=== PATIENT | male | born 1940 | race Caucasian/White ===

== ENCOUNTER 2018-01-18 15:00 | Inpatient (IN) | payer MEDICARE, OTHER ==
[~2018-01-18] VITALS: Ht 180.3 cm; Wt 133.4 kg
[~2018-01-18 15:00] MED LIST: AMMONIUM LACTA225 GM TOP; BACTRIM DS TAB1 EACH PO; CEPHALEXIN500 MG PO; CICLOPIROX15 GM TOP; CIPRO500 MG PO; COUMADIN2.5 MG PO; DAILY VITAMIN1 EAC3 PO; DESONIDE15 G1 TOP; DOXEPIN HCL25 MG PO; FEXOFENADINE H180 MG PO; FLUCONAZOLE100 MG PO; FUROSEMIDE40 MG PO; HYDROXYZINE PAM25 MG PO; Iron PO; NITROGLYCERIN0.4 MG SL; NORCO 5-325 TA1 EACH PO; OMEPRAZOLE40 MG PO; POLYETHYLENE GL17 GM PO; POTASSIUM CHLO10 ME1 PO; QUINAPRIL HCL40 MG PO; SILVER SULFADIA10 GM TP; SIMVASTATIN40 MG PO; SUPER B WITH V1 EACH PO; TENORMIN50 MG PO; TERBINAFINE HC250 MG PO; TOPICORT15 G1 TP; TRAZODONE HCL50 MG PO; TRIAMCINOLONE A15 G3 TOP; TRIAMTERENE-HCTZ1 EA PO; ULTRAM 50MG50 MG PO; WARFARIN SODIUM5 MG PO
--- OUTSIDE RECORDS SUMMARY | 2018-01-18 15:03 | XMS REPORT | Clinical Summary ---
Author Author MARITA PDD GroupSt. 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 Disp. Refills Start End Date Status Date omeprazole (PRILOSEC OTC) Take 20 mg by mouth Active 20 MG tablet daily. atenolol (TENORMIN) 50 MG Take 50 mg by mouth Active tablet daily. fexofenadine (JASPREET) Take 180 mg by mouth Active 180 MG tablet daily. furosemide (LASIX) 40 MG Take 40 mg by mouth Active tablet daily. quinapril (ACCUPRIL) 40 Take 40 mg by mouth Active MG tablet nightly. simvastatin (ZOCOR) 40 MG Take 40 mg by mouth Active tablet nightly. traMADol (ULTRAM) 50 mg Take 50 mg by mouth every Active tablet 6 (six) hours as needed. warfarin (COUMADIN) 5 MG Take 5 mg by mouth daily. Active tablet Take 1 and a half tablets daily or as directed by coumadin clinic. multivitamin Take 1 tablet by mouth Active (MULTIVITAMIN) per tablet daily. potassium chloride Take 10 mEq by mouth Active (KLOR-CON) 10 MEQ CR daily. tablet ferrous sulfate 325 (65 Take 325 mg by mouth Active FE) MG tablet daily with breakfast. doxazosin (CARDURA) 4 MG Take 4 mg by mouth 04/07/20 Discontin tablet nightly. 17 ued finasteride (PROSCAR) 5 Take 5 mg by mouth daily. 04/07/20 Discontin mg tablet 17 ued triamterene-hydrochloroth Take 1 tablet by mouth 04/07/20 Discontin iazide (MAXZIDE-25) daily. 17 ued 37.5-25 mg per tablet minocycline Take 1 capsule (100 mg 20 capsule 0 04/11/20 04/21/20 (MINOCIN,DYNACIN) 100 MG total) by mouth 2 (two) 17 17 capsule times daily for 10 days. 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, 04/07 limited to breakdown of skin ([facility]) PAD (peripheral artery disease) (HCC) 04/07/2017 BPH (benign prostatic hyperplasia) 08/22/2013 Hypertension 09/12/1988 Encounters Date Type Specialty Care Team Description 04/08/2017 Orders Only General Internal Medicine 04/07/2017 [facility] General Internal Medicine Bjorn Dela Cruz MD Cellulitis of right foot - Encounter Michelle Win (Primary Dx);Fever, 04/11/2017 MD Nelly unspecified fever Erasto Martin MD cause;Leukocytosis, unspecified type;Essential hypertension;Sepsis, due to unspecified organism ([facility]) after 01/17/2017 Social History Tobacco Use Types Packs/Day Years Used Date Former Smoker 2.5 33 Quit: 04/12/1987 Smokeless Tobacco: Never Used Alcohol Use Drinks/Week oz/Week Comments No Sex Assigned at Date Recorded Not on file Last Filed Vital Signs Vital Sign Reading Time Taken Blood Pressure 153/73 04/11/2017 12:08 PM CDT Pulse 73 04/11/2017 12:08 PM CDT Temperature 36.7 C (98.1 F) 04/11/2017 12:08 PM CDT Respiratory Rate 20 04/11/2017 12:08 PM CDT Oxygen Saturation 97% 04/11/2017 12:08 PM CDT Inhaled Oxygen - - Concentration Weight 142 kg (313 lb) 04/08/2017 2:10 AM CDT Height 180.3 cm (5' 11") 04/08/2017 2:10 AM CDT Body Mass Index 43.65 04/08/2017 2:10 AM CDT Plan of Treatment Not on file Results * RHYTHM STRIP - SCAN (04/12/2017 2:12 PM) * POC-Glucose meter (04/11/2017 12:11 PM) Only the most recent of 14 results within the time period is included. Component Value Ref Range POC-Glucose Meter 148 (H)Comment: TESTED AT [address] 70 - 110 mg /dL [facility] [id number] Specimen Performing Laboratory Blood [address] [address] * CBC with platelet count + automated diff (04/11/2017 5:21 AM) Only the most recent of 5 results within the time period is included. Component Value Ref Range WBC 6.1 3.5 - 10.5 K/ L RBC 4.36 (L) 4.63 - 6.08 M/ L Hemoglobin 12.1 (L) 13.7 - 17.5 GM/DL Hematocrit 37.4 (L) 40.1 - 51.0 % MCV 85.8 79.0 - 92.2 fL MCH 27.8 25.7 - 32.2 pg MCHC 32.4 32.3 - 36.5 GM/DL RDW 15.9 (H) 11.6 - 14.4 % Platelets 152 150 - 450 K/CU MM MPV 10.3 9.4 - 12.4 fL nRBC 0 0 - 0 /100 WBC % Neutros 74 % % Lymphs 13 % % Monos 10 % % Eos 2 % % Baso 0 % # Neutros 4.52 1.78 - 5.38 K/ L # Lymphs 0.78 (L) 1.32 - 3.57 K/ L # Monos 0.58 0.30 - 0.82 K/ L # Eos 0.14 0.04 - 0.54 K/ L # Baso 0.02 0.01 - 0.08 K/ L Immature 1 0 - 1 % Granulocytes-Relative Specimen Performing Laboratory Blood - Arm, Left [address] [address] * Prothrombin time/INR (04/11/2017 5:21 AM) Only the most recent of 4 results within the time period is included. Component Value Ref Range Protime 20.5 (H) 11.7 - 14.7 seconds INR 1.8 <=5.9 Specimen Performing Laboratory Blood - Arm, Left [address] [address] Narrative RECOMMENDED COUMADIN/WARFARIN INR THERAPY RANGES STANDARD DOSE: 2.0 - 3.0 Includes: PROPHYLAXIS for venous thrombosis, systemic embolization; TREATMENT for venous thrombosis and/or pulmonary embolus. HIGH RISK: Target INR is 2.5-3.5 for patients with mechanical heart valves. * CBC with platelet count + automated diff (04/11/2017 5:21 AM) Only the most recent of 5 results within the time period is included. Specimen Performing Laboratory Blood Narrative The following orders were created for panel order CBC with platelet count + automated diff. Procedure Abnormality Status --------- - ------ CBC with platelet count ...[[id number]]AbnormalFinal result Please view results for these tests on the individual orders. * Basic Metabolic Panel (04/11/2017 5:21 AM) Only the most recent of 5 results within the time period is included. Component Value Ref Range Sodium 138 136 - 145 meq/L Potassium 3.7 3.5 - 5.1 meq/L Chloride 102 98 - 107 meq/L CO2 26 22 - 29 meq/L BUN 21 7 - 21 mg/dL Creatinine 1.25 0.57 - 1.25 mg/dL Glucose 115 (H) 70 - 105 mg/dL Calcium 9.7 8.4 - 10.2 mg/dL EGFR 56Comment: ESTIMATED GFR IS NOT ACCURATE mL/min/1.73 sq m CREATININE CLEARANCE IN PREDICTING GLOMERULAR FILTRATION RATE. ESTIMATED GFR IS NOT APPLICABLE FOR DIALYSIS PATIENTS. Specimen Performing Laboratory Blood - Arm, Left [address] [address] * PERIPHERAL VASCULAR REPORT - SCAN (04/10/2017 1:20 PM) Only the most recent of 2 results within the time period is included. * Venous doppler leg, right (04/10/2017 12:20 PM) Component Value Ref Range Ejection Fraction Specimen Performing Laboratory [facility] CPACS Impressions Right Impression 1. There is no deep venous obstruction in the common femoral, profunda femoral, femoral, popliteal, posterior tibial or peroneal veins where visualized. 2. There is no superficial venous obstruction in the great saphenous vein where visualized. Conclusions Summary Venous duplex imaging and compression of the right lower extremity was performed. The veins were technically difficult to visualize due to edema and patient body habitus. The right venous system was patent and compressible with no evidence of thrombus where visualized. The venous Doppler waveforms were pulsatile indicating possible elevated right heart filling pressure. Signature Velocities are measured in cm/s ; Diameters are measured in cm Narrative PV LAB - Lower Extremities DVT Study Demographics Patient Name MAXIMILIANO NAIR Date of Study 04/10/2017 GEM [id number] Visit Number [id number] Male Accession Number [id number] of 1940 [facility] Room Number 739 Hannah Lomeli. JACQUELINE CarterT Physician , YEYO Procedure Type of Study: Veins: Lower Extremities DVT Study, VENOUS DOPPLER LEG, RIGHT. Indications for Study:Right Leg Swelling and Foot Ulcer. Patient Status:Routine. Study Location:Vascular Lab. Technical Quality:Adequate visualization. Risk Factors History of Disease + +----+ + !Diagnosis !Date!Comments ! + +----+ + !History/Risk!!HTN, Cellulitis, Chronic A-fib, CAD, Former ! !Factors:!!smoker ! + +----+ + !History/Risk!!Diabetes and PAD ! !Factors:!! ! + +----+ + Procedure Note Interface, External Ris In - 04/10/2017 12:35 PM CDT PV LAB - Lower Extremities DVT Study Demographics Patient Name MAXIMILIANO NAIR Date of Study 04/10/2017 GEM Age 76 Visit Number [id number] Gender Male Accession Number [id number] Date of 1940 Referring [facility] Room Number 739 Physician Gabbie Cardona Director Work Klaudia Velazquez Interpreting Balaji Corral, T Physician , RPVI Procedure Type of Study: Veins: Lower Extremities DVT Study, VENOUS DOPPLER LEG, RIGHT. Indications for Study:Right Leg Swelling and Foot Ulcer. Patient Status:Routine. Study Location:Vascular Lab. Technical Quality:Adequate visualization. Risk Factors History of Disease + +----+ + !Diagnosis !Date!Comments ! + +----+ + !History/Risk ! !HTN, Cellulitis, Chronic A-fib, CAD, Former ! !Factors: ! !smoker ! + +----+ + !History/Risk ! !Diabetes and PAD ! !Factors: ! ! ! + +----+ + Impressions Right Impression 1. There is no deep venous obstruction in the common femoral, profunda femoral, femoral, popliteal, posterior tibial or peroneal veins where visualized. 2. There is no superficial venous obstruction in the great saphenous vein where visualized. Conclusions Summary Venous duplex imaging and compression of the right lower extremity was performed. The veins were technically difficult to visualize due to edema and patient body habitus. The right venous system was patent and compressible with no evidence of thrombus where visualized. The venous Doppler waveforms were pulsatile indicating possible elevated right heart filling pressure. Signature Velocities are measured in cm/s ; Diameters are measured in cm * Hemoglobin A1c (04/10/2017 5:16 AM) Component Value Ref Range Hemoglobin A1C 6.9 (H) 4.3 - 6.1 % Specimen Performing Laboratory Blood - Arm, [place] [address] * Vancomycin level, trough (04/10/2017 5:16 AM) Component Value Ref Range Vancomycin Tr 8.2 (L) 10.0 - 20.0 ug/mL Specimen Performing Laboratory Blood - Arm, [place] [address] Narrative Please draw vancomycin trough \\R\\30 minutes prior to administration time; For trough >20 mcg/mL, hold next dose and contact pharmacy and MD. * Urinalysis w/Microscopic + Reflex to Culture (04/09/2017 9:45 AM) Component Value Ref Range Color, UA Yellow Clarity, UA Hazy Specific B[place]on, UA 1.017 1.001 - 1.035 pH, UA 6.0 5.0 - 8.0 Protein, UA 200 mg/dL (A) Negative Glucose, UA Negative Negative Ketones, UA Negative Negative Bilirubin, UA Negative Negative Blood, UA Moderate (A) Negative Nitrite, UA Negative Negative Leukocytes, UA Large (A) Negative Urobilinogen, UA 2.0 (H) 0.2 - 1.0 mg/dL RBC, UA 2 /HPF WBC, UA 130 /HPF Mucus Rare Squam Epithel, UA 1 /HPF Specimen Source Specimen Performing Laboratory Urine - Urine, Voided [address] [address] * Urine culture (04/09/2017 9:45 AM) Component Value Ref Range Result No growth Specimen Performing Laboratory Urine - Urine, [place] [address] * TSH/Free T4 If Indicated (04/09/2017 5:03 AM) Component Value Ref Range TSH 3.42 0.35 - 4.94 uIU/mL Specimen Performing Laboratory Blood [place] [id number] * B-type Natriuretic Factor (BNP) (04/09/2017 5:03 AM) Component Value Ref Range BNP 145 (H) 0 - 100 pg/mL Specimen Performing Laboratory Blood [facility] [address] [place] [address] * Arterial doppler legs bilateral (04/08/2017 5:30 PM) Component Value Ref Range Ejection Fraction Specimen Performing Laboratory [facility] CPACS Impressions Right Impression 1. The posterior tibial and dorsalis pedis arteries are patent with triphasic Doppler waveforms. 2. The PT pressure is 157 mmHg with an SHANTANU of 1.28 and the DP pressure is 158 mmHg with an SHANTANU of 1.28, within normal range. 3. The great toe pressure is 103 mmHg with a normal TBI of 0.84. 4. The digits have adequate flow by PPG waveforms. Left Impression 1. The posterior tibial and dorsalis pedis arteries are patent with triphasic Doppler waveforms. 2. The PT pressure is 142 mmHg with an SHANTANU of 1.15 and the DP pressure is 150 mmHg with an SHANTANU of 1.22, within normal range. 3. The great toe pressure is 113 mmHg with a normal TBI of 0.92. 4. The digits have decreased flow by PPG waveforms compared to the right side. Conclusions Summary Arterial pressures and Doppler waveforms were performed bilaterally. Adequate Doppler waveforms were obtained. Doppler waveforms were triphasic with normal flow bilaterally. The right and left SHANTANU's were within normal range. The toe pressure and TBI's were within normal range bilaterally. The right digits had adequate flow by PPG waveforms. The left digits had decreased flow by PPG waveforms compared to the right. Signature Velocities are measured in cm/s ; Diameters are measured in cm Narrative PV LAB - Lower Extremity Arterial Procedure Demographics Patient Name MAXIMILIANO NAIR Date of Study 04/08/2017 GEM [id number] Visit Number [id number] Male Accession Number [id number] [facility] 1940 [facility] SonographerHeaFamilia Noel Alejandro Physician , RPVI Procedure Type of Study: Extremities Arteries: Lower Extremity Arterial Procedure, ARTERIAL (SHANTANU'S W/DOPPLER) ONLY. Indications for Study:Claudication. Patient Status:Routine. Study Location:Vascular Lab. Technical Quality:Adequate visualization. Risk Factors History of Disease + +----+ + !Diagnosis !Date!Comments ! + +----+ + !History/Risk!!HTN, Cellulitis, Chronic A-fib, CAD, Former ! !Factors:!!smoker ! + +----+ + Procedure Note Interface, External Ris In - 04/09/2017 5:34 AM CDT PV LAB - Lower Extremity Arterial Procedure Demographics Patient Name MAXIMILIANO NAIR Date of Study 04/08/2017 GEM Age 76 Visit Number [id number] Gender Male Accession Number [id number] Date of 1940 Referring [facility] Room Number 739 Physician Director Work Familia Cevallos [facility] Physician , RPVI Procedure Type of Study: Extremities Arteries: Lower Extremity Arterial Procedure, ARTERIAL (SHANTANU'S W/DOPPLER) ONLY. Indications for Study:Claudication. Patient Status:Routine. Study Location:Vascular Lab. Technical Quality:Adequate visualization. Risk Factors History of Disease + +----+ + !Diagnosis !Date!Comments ! + +----+ + !History/Risk ! !HTN, Cellulitis, Chronic A-fib, CAD, Former ! !Factors: ! !smoker ! + +----+ + Impressions Right Impression 1. The posterior tibial and dorsalis pedis arteries are patent with triphasic Doppler waveforms. 2. The PT pressure is 157 mmHg with an SHANTANU of 1.28 and the DP pressure is 158 mmHg with an SHANTANU of 1.28, within normal range. 3. The great toe pressure is 103 mmHg with a normal TBI of 0.84. 4. The digits have adequate flow by PPG waveforms. Left Impression 1. The posterior tibial and dorsalis pedis arteries are patent with triphasic Doppler waveforms. 2. The PT pressure is 142 mmHg with an SHANTANU of 1.15 and the DP pressure is 150 mmHg with an SHANTANU of 1.22, within normal range. 3. The great toe pressure is 113 mmHg with a normal TBI of 0.92. 4. The digits have decreased flow by PPG waveforms compared to the right side. Conclusions Summary Arterial pressures and Doppler waveforms were performed bilaterally. Adequate Doppler waveforms were obtained. Doppler waveforms were triphasic with normal flow bilaterally. The right and left SHANTANU's were within normal range. The toe pressure and TBI's were within normal range bilaterally. The right digits had adequate flow by PPG waveforms. The left digits had decreased flow by PPG waveforms compared to the right. Signature Velocities are measured in cm/s ; Diameters are measured in cm * Manual Differential (04/08/2017 9:59 AM) Component Value Ref Range Total Counted WBC Morphology Normal Platelet Morphology Normal RBC Morphology Normal Specimen Performing Laboratory Blood - Arm, [place] [address] * ECG 12 lead (04/08/2017 12:36 AM) Specimen Performing Laboratory GE MUSE Narrative Ventricular Rate 114 BPM Atrial Rate 147 BPM QRS Duration 96 ms Q-T Interval 350 ms QTC Calculation(Bazett) 482 ms R [place] 4 degrees T [place] 64 degrees Atrial fibrillation with rapid ventricular response Low voltage QRS Abnormal ECG When compared with ECG of 05-JAN-2013 18:32, No significant change was found Confirmed by MD KAREN, IHAB ([id number]) on 04/08/2017 2:38:56 PM Procedure Note Interface, External Ris In - 04/08/2017 2:39 PM CDT Ventricular Rate 114 BPM Atrial Rate 147 BPM QRS Duration 96 ms Q-T Interval 350 ms QTC Calculation(Bazett) 482 ms R [place] 4 degrees T [place] 64 degrees Atrial fibrillation with rapid ventricular response Low voltage QRS Abnormal ECG When compared with ECG of 05-JAN-2013 18:32, No significant change was found Confirmed by MD KAREN, AB ([id number]) on 04/08/2017 2:38:56 PM * ED ECG Interpretation (04/07/2017 11:31 PM) Narrative Bjorn Dela Cruz MD 04/07/2017 11:31 PM ECG/EKG Interpretation Date/Time: 04/07/2017 11:00 PM Performed by: BJORN DELA CRUZ Authorized by: BJORN DELA CRUZ The ECG was interpreted by ED physician. The ECG is interpreted as sinus tachycardia. Heart rate is 116 BPM. Patient tolerance: Patient tolerated the procedure well with no immediate complications Comments: SINUS TACHYCARDIA ON MONITOR * POC-Lactic Acid, Venous (04/07/2017 9:06 PM) Component Value Ref Range POC-Lactic Acid, Venous 1.6Comment: TESTED AT [address] 0.9 - 1.7 mmol/[place] [address] Specimen Performing Laboratory Blood [address] [address] * Blood culture (04/07/2017 9:00 PM) Only the most recent of 2 results within the time period is included. Component Value Ref Range Result No growth in 5 days Specimen Performing Laboratory Blood - Arm, Left [address] [address] * XR chest 1 view portable / bedside (04/07/2017 8:10 PM) Specimen Performing Laboratory GE RIS Narrative FINAL REPORT History: Fever. Comparison: 01/04/2013 Findings: 2 frontal views of the chest are submitted. There is atherosclerotic calcification of the aorta area The cardiomediastinal contours are otherwise unremarkable. There is no focal consolidation, pneumothorax, large pleural effusion or evidence of overt pulmonary edema. There is no acute bony abnormality. Impression: No acute abnormality. Signed: George Carmichael MD Report Verified Date/Time:04/07/2017 20:23:58 Reading Location: [address] Reading Room Procedure Note Interface, External Ris In - 04/07/2017 8:26 PM CDT FINAL REPORT History: Fever. Comparison: 01/04/2013 Findings: 2 frontal views of the chest are submitted. There is atherosclerotic calcification of the aorta area The cardiomediastinal contours are otherwise unremarkable. There is no focal consolidation, pneumothorax, large pleural effusion or evidence of overt pulmonary edema. There is no acute bony abnormality. Impression: No acute abnormality. Signed: George Carmichael MD Report Verified Date/Time: 04/07/2017 20:23:58 Reading Location: [address] Reading Room * XR foot 3 views right (04/07/2017 8:10 PM) Specimen Performing Laboratory GE RIS Narrative FINAL REPORT CLINICAL HISTORY: Cellulitis and fever COMPARISON: None. FINDINGS: 3 views of the right foot are submitted. There is diffuse soft tissue swelling about the foot and ankle without underlying fracture, malalignment, destructive bony lesion, radiopaque foreign body or soft tissue gas. Please note that the radiographic appearance of osteomyelitis lags behind clinical onset. If of further clinical concern, three-phase bone scan or MRI is recommended. Signed: George Carmichael MD Report Verified Date/Time:04/07/2017 20:37:04 Reading Location: [address] Reading Room Procedure Note Interface, External Ris In - 04/07/2017 8:39 PM CDT FINAL REPORT CLINICAL HISTORY: Cellulitis and fever COMPARISON: None. FINDINGS: 3 views of the right foot are submitted. There is diffuse soft tissue swelling about the foot and ankle without underlying fracture, malalignment, destructive bony lesion, radiopaque foreign body or soft tissue gas. Please note that the radiographic appearance of osteomyelitis lags behind clinical onset. If of further clinical concern, three-phase bone scan or MRI is recommended. Signed: George Carmichael MD Report Verified Date/Time: 04/07/2017 20:37:04 Reading Location: [address] Reading Room after 01/17/2017
--- OUTSIDE RECORDS SUMMARY | 2018-01-18 15:04 | XMS REPORT ---
Author Author [facility] Address Unknown Phone Unavailable Care Team Providers Care Public Relations Consultant Name Role Phone BJORN PARRA Unavailable Unavailable Problems This patient has no known problems. Allergies, Adverse Reactions, Alerts This patient has no known allergies or adverse reactions. Medications This patient has no known medications. Results Test Description Test Time Test Comments Text Results Atomic Results Result Comments BLOOD CULTURE 2017-04-13 00:00:00 CULTURE (BEAKER) (test eaub=9872) No growth in 5 days BLOOD [id number] 00:00:00* Test Item Value Reference Range Comments CULTURE (BEAKER) (test zzse=2700) No growth in 5 days POCT-GLUCOSE [id number] 12:29:00* Test Item Value Reference Range Comments POC-GLUCOSE METER (BEAKER) (test uzun=6503) 148 mg/dL 70-110 TESTED AT [place] [id number] [facility] [address] POCT-GLUCOSE [id number] 07:33:00* Test Item Value Reference Range Comments POC-GLUCOSE METER (BEAKER) (test dsau=9531) 126 mg/dL 70-110 TESTED AT [address] [address] CBC W/PLT COUNT & AUTO [id number] 05:55:00* Test Item Value Reference Range Comments WHITE BLOOD CELL COUNT (BEAKER) (test xfhw=945) 6.1 K/ L 3.5-10.5 RED BLOOD CELL COUNT (BEAKER) (test dvsl=926) 4.36 M/ L 4.63-6.08 HEMOGLOBIN (BEAKER) (test jtaj=761) 12.1 GM/DL 13.7-17.5 HEMATOCRIT (BEAKER) (test pgjo=157) 37.4 % 40.1-51.0 MEAN CORPUSCULAR VOLUME (BEAKER) (test ssrz=556) 85.8 fL 79.0-92.2 MEAN CORPUSCULAR HEMOGLOBIN (BEAKER) (test vptj=417) 27.8 pg 25.7-32.2 MEAN CORPUSCULAR HEMOGLOBIN CONC (BEAKER) (test ezrm=552) 32.4 GM/DL 32.3- 36.5 RED CELL DISTRIBUTION WIDTH (BEAKER) (test mowk=142) 15.9 % 11.6-14.4 PLATELET COUNT (BEAKER) (test hfpb=118) 152 K/CU MM 150-450 MEAN PLATELET VOLUME (BEAKER) (test hnsv=693) 10.3 fL 9.4-12.4 NUCLEATED RED BLOOD CELLS (BEAKER) (test qbop=462) 0 /100 WBC 0-0 NEUTROPHILS RELATIVE PERCENT (BEAKER) (test wfhx=902) 74 % LYMPHOCYTES RELATIVE PERCENT (BEAKER) (test kpgo=376) 13 % MONOCYTES RELATIVE PERCENT (BEAKER) (test ijhf=348) 10 % EOSINOPHILS RELATIVE PERCENT (BEAKER) (test rthb=904) 2 % BASOPHILS RELATIVE PERCENT (BEAKER) (test cabd=514) 0 % NEUTROPHILS ABSOLUTE COUNT (BEAKER) (test bayj=695) 4.52 K/ L 1.78-5.38 LYMPHOCYTES ABSOLUTE COUNT (BEAKER) (test qube=550) 0.78 K/ L 1.32-3.57 MONOCYTES ABSOLUTE COUNT (BEAKER) (test rwvy=489) 0.58 K/ L 0.30-0.82 EOSINOPHILS ABSOLUTE COUNT (BEAKER) (test gceu=380) 0.14 K/ L 0.04-0.54 BASOPHILS ABSOLUTE COUNT (BEAKER) (test ijfj=428) 0.02 K/ L 0.01-0.08 IMMATURE GRANULOCYTES-RELATIVE PERCENT (BEAKER) (test ahmx=5735) 1 % 0-1 BASIC METABOLIC [id number] 05:53:00* Test Item Value Reference Range Comments SODIUM (BEAKER) (test plig=266) 138 meq/L 136-145 POTASSIUM (BEAKER) (test rpcl=788) 3.7 meq/L 3.5-5.1 CHLORIDE (BEAKER) (test pmpq=349) 102 meq/L 98-107 CO2 (BEAKER) (test ddkm=426) 26 meq/L 22-29 BLOOD UREA NITROGEN (BEAKER) (test lhxz=451) 21 mg/dL 7-21 CREATININE (BEAKER) (test rdxx=171) 1.25 mg/dL 0.57-1.25 GLUCOSE RANDOM (BEAKER) (test zpub=855) 115 mg/dL 70-105 CALCIUM (BEAKER) (test qbyn=272) 9.7 mg/dL 8.4-10.2 EGFR (BEAKER) (test mwda=6972) 56 mL/min/1.73 sq m ESTIMATED GFR IS NOT ACCURATE CREATININE CLEARANCE IN PREDICTING GLOMERULAR FILTRATION RATE. ESTIMATED GFR IS NOT APPLICABLE FOR DIALYSIS PATIENTS. PROTHROMBIN TIME/[id number] 05:50:00* Test Item Value Reference Range Comments PROTIME (BEAKER) (test robi=851) 20.5 seconds 11.7-14.7 INR (BEAKER) (test jtgs=404) 1.8 <=5.9 RECOMMENDED COUMADIN/WARFARIN INR THERAPY RANGESSTANDARD DOSE: 2.0 - 3.0 Includes: PROPHYLAXIS for venous thrombosis, systemic embolization; TREATMENT for venous thrombosis and/or pulmonary embolus.HIGH RISK: Target INR is 2.5-3.5 for patients with mechanical heart valves.POCT-GLUCOSE [id number] 22:29:00 * Test Item Value Reference Range Comments POC-GLUCOSE METER (BEAKER) (test leva=0859) 152 mg/dL 70-110 TESTED AT [address] [address] POCT-GLUCOSE [id number] 16:42:00* Test Item Value Reference Range Comments POC-GLUCOSE METER (BEAKER) (test miyu=3507) 161 mg/dL 70-110 TESTED AT [place] [id number] [facility] [address] POCT-GLUCOSE [id number] 13:07:00* Test Item Value Reference Range Comments POC-GLUCOSE METER (BEAKER) (test hyim=9417) 125 mg/dL 70-110 TESTED AT [address] [address] CBC W/PLT COUNT & AUTO [id number] 08:57:00* Test Item Value Reference Range Comments WHITE BLOOD CELL COUNT (BEAKER) (test lnzh=824) 6.7 K/ L 3.5-10.5 RED BLOOD CELL COUNT (BEAKER) (test fyvm=225) 4.08 M/ L 4.63-6.08 HEMOGLOBIN (BEAKER) (test uqiu=414) 11.3 GM/DL 13.7-17.5 HEMATOCRIT (BEAKER) (test nlxu=467) 35.3 % 40.1-51.0 MEAN CORPUSCULAR VOLUME (BEAKER) (test zdgd=489) 86.5 fL 79.0-92.2 MEAN CORPUSCULAR HEMOGLOBIN (BEAKER) (test jizt=562) 27.7 pg 25.7-32.2 MEAN CORPUSCULAR HEMOGLOBIN CONC (BEAKER) (test awyc=647) 32.0 GM/DL 32.3- 36.5 RED CELL DISTRIBUTION WIDTH (BEAKER) (test nzxt=436) 15.7 % 11.6-14.4 PLATELET COUNT (BEAKER) (test fuuy=798) 143 K/CU MM 150-450 MEAN PLATELET VOLUME (BEAKER) (test pxjs=872) 10.5 fL 9.4-12.4 NUCLEATED RED BLOOD CELLS (BEAKER) (test xkqb=291) 0 /100 WBC 0-0 NEUTROPHILS RELATIVE PERCENT (BEAKER) (test zghr=542) 80 % LYMPHOCYTES RELATIVE PERCENT (BEAKER) (test srdk=199) 11 % MONOCYTES RELATIVE PERCENT (BEAKER) (test ghyl=267) 6 % EOSINOPHILS RELATIVE PERCENT (BEAKER) (test jcdz=749) 3 % BASOPHILS RELATIVE PERCENT (BEAKER) (test yzcv=128) 0 % NEUTROPHILS ABSOLUTE COUNT (BEAKER) (test zufh=270) 5.35 K/ L 1.78-5.38 LYMPHOCYTES ABSOLUTE COUNT (BEAKER) (test iwoh=372) 0.73 K/ L 1.32-3.57 MONOCYTES ABSOLUTE COUNT (BEAKER) (test xcwn=155) 0.42 K/ L 0.30-0.82 EOSINOPHILS ABSOLUTE COUNT (BEAKER) (test uueg=633) 0.18 K/ L 0.04-0.54 BASOPHILS ABSOLUTE COUNT (BEAKER) (test psbq=874) 0.01 K/ L 0.01-0.08 IMMATURE GRANULOCYTES-RELATIVE PERCENT (BEAKER) (test wsst=7187) 0 % 0-1 POCT-GLUCOSE [id number] 08:33:00* Test Item Value Reference Range Comments POC-GLUCOSE METER (BEAKER) (test fbcd=4635) 148 mg/dL 70-110 TESTED AT [facility] [address] [facility] [address] HEMOGLOBIN [id number] 08:16:00* Test Item Value Reference Range Comments HEMOGLOBIN A1C (BEAKER) (test vsrg=737) 6.9 % 4.3-6.1 VANCOMYCIN LEVEL, [id number] 07:09:00* Test Item Value Reference Range Comments VANCOMYCIN TROUGH (BEAKER) (test rezj=114) 8.2 ug/mL 10.0-20.0 Please draw vancomycin trough \R\30 minutes prior to administration time; For trough >20 mcg/mL, hold next dose and contact pharmacy and MD.BASIC METABOLIC [id number] 07:02:00* Test Item Value Reference Range Comments SODIUM (BEAKER) (test rlsq=430) 133 meq/L 136-145 POTASSIUM (BEAKER) (test wqbj=792) 3.4 meq/L 3.5-5.1 CHLORIDE (BEAKER) (test rmsk=177) 98 meq/L 98-107 CO2 (BEAKER) (test vymc=040) 26 meq/L 22-29 BLOOD UREA NITROGEN (BEAKER) (test wfdl=245) 23 mg/dL 7-21 CREATININE (BEAKER) (test ayrq=892) 1.22 mg/dL 0.57-1.25 GLUCOSE RANDOM (BEAKER) (test tukx=793) 113 mg/dL 70-105 CALCIUM (BEAKER) (test rjtj=243) 9.1 mg/dL 8.4-10.2 EGFR (BEAKER) (test hdvi=1427) 58 mL/min/1.73 sq m ESTIMATED GFR IS NOT ACCURATE CREATININE CLEARANCE IN PREDICTING GLOMERULAR FILTRATION RATE. ESTIMATED GFR IS NOT APPLICABLE FOR DIALYSIS PATIENTS. PROTHROMBIN TIME/[id number] 06:29:00* Test Item Value Reference Range Comments PROTIME (BEAKER) (test obhp=580) 20.0 seconds 11.7-14.7 INR (BEAKER) (test cahi=205) 1.7 <=5.9 RECOMMENDED COUMADIN/WARFARIN INR THERAPY RANGESSTANDARD DOSE: 2.0 - 3.0 Includes: PROPHYLAXIS for venous thrombosis, systemic embolization; TREATMENT for venous thrombosis and/or pulmonary embolus.HIGH RISK: Target INR is 2.5-3.5 for patients with mechanical heart valves.POCT-GLUCOSE [id number] 22:30:00 * Test Item Value Reference Range Comments POC-GLUCOSE METER (BEAKER) (test anrs=6034) 145 mg/dL 70-110 TESTED AT [address] [address] POCT-GLUCOSE [id number] 17:53:00* Test Item Value Reference Range Comments POC-GLUCOSE METER (BEAKER) (test xsot=8804) 231 mg/dL 70-110 TESTED AT [address] [address] POCT-GLUCOSE [id number] 12:13:00* Test Item Value Reference Range Comments POC-GLUCOSE METER (BEAKER) (test jcjs=6364) 188 mg/dL 70-110 TESTED AT [address] [address] URINALYSIS W/ REFLEX URINE [id number] 10:31:00* Test Item Value Reference Range Comments COLOR (BEAKER) (test xlqd=529) Yellow CLARITY (BEAKER) (test rqzs=491) Hazy SPECIFIC GRAVITY UA (BEAKER) (test fmko=705) 1.017 1.001-1.035 PH UA (BEAKER) (test xwpc=039) 6.0 5.0-8.0 PROTEIN UA (BEAKER) (test qpgd=363) 200 mg/dL Negative GLUCOSE UA (BEAKER) (test fsey=849) Negative Negative KETONES UA (BEAKER) (test qlfx=307) Negative Negative BILIRUBIN UA (BEAKER) (test egke=774) Negative Negative BLOOD UA (BEAKER) (test jdyr=484) Moderate Negative NITRITE UA (BEAKER) (test cgva=279) Negative Negative LEUKOCYTE ESTERASE UA (BEAKER) (test blxu=172) Large Negative UROBILINOGEN UA (BEAKER) (test ojnr=624) 2.0 mg/dL 0.2-1.0 RBC UA (BEAKER) (test izgt=599) 2 /HPF WBC UA (BEAKER) (test mfup=605) 130 /HPF MUCUS (BEAKER) (test phyo=5652) Rare SQUAMOUS EPITHELIAL (BEAKER) (test rqdb=240) 1 /HPF SOURCE(BEAKER) (test kyyd=1353) POCT-GLUCOSE [id number] 08:53:00* Test Item Value Reference Range Comments POC-GLUCOSE METER (BEAKER) (test tifp=9251) 112 mg/dL 70-110 TESTED AT [address] [address] CBC W/PLT COUNT & AUTO [id number] 07:09:00* Test Item Value Reference Range Comments WHITE BLOOD CELL COUNT (BEAKER) (test bfgl=638) 11.1 K/ L 3.5-10.5 RED BLOOD CELL COUNT (BEAKER) (test ujkc=761) 4.29 M/ L 4.63-6.08 HEMOGLOBIN (BEAKER) (test eyvu=360) 11.9 GM/DL 13.7-17.5 HEMATOCRIT (BEAKER) (test pwik=683) 37.0 % 40.1-51.0 MEAN CORPUSCULAR VOLUME (BEAKER) (test hjui=716) 86.2 fL 79.0-92.2 MEAN CORPUSCULAR HEMOGLOBIN (BEAKER) (test kqij=207) 27.7 pg 25.7-32.2 MEAN CORPUSCULAR HEMOGLOBIN CONC (BEAKER) (test cmxv=010) 32.2 GM/DL 32.3- 36.5 RED CELL DISTRIBUTION WIDTH (BEAKER) (test ohpv=503) 15.6 % 11.6-14.4 PLATELET COUNT (BEAKER) (test zajv=135) 147 K/CU MM 150-450 MEAN PLATELET VOLUME (BEAKER) (test xxij=938) 10.0 fL 9.4-12.4 NUCLEATED RED BLOOD CELLS (BEAKER) (test heqq=619) 0 /100 WBC 0-0 NEUTROPHILS RELATIVE PERCENT (BEAKER) (test zmtj=353) 87 % LYMPHOCYTES RELATIVE PERCENT (BEAKER) (test izko=337) 8 % MONOCYTES RELATIVE PERCENT (BEAKER) (test bujh=346) 4 % EOSINOPHILS RELATIVE PERCENT (BEAKER) (test vucu=603) 1 % BASOPHILS RELATIVE PERCENT (BEAKER) (test dzpq=431) 0 % NEUTROPHILS ABSOLUTE COUNT (BEAKER) (test zoex=852) 9.59 K/ L 1.78-5.38 LYMPHOCYTES ABSOLUTE COUNT (BEAKER) (test tcnx=786) 0.87 K/ L 1.32-3.57 MONOCYTES ABSOLUTE COUNT (BEAKER) (test ptma=753) 0.39 K/ L 0.30-0.82 EOSINOPHILS ABSOLUTE COUNT (BEAKER) (test hrxb=030) 0.12 K/ L 0.04-0.54 BASOPHILS ABSOLUTE COUNT (BEAKER) (test ebcq=115) 0.03 K/ L 0.01-0.08 IMMATURE GRANULOCYTES-RELATIVE PERCENT (BEAKER) (test zhie=4135) 1 % 0-1 TSH/FREE T4 IF [id number] 06:16:00* Test Item Value Reference Range Comments THYROID STIMULATING HORMONE (BEAKER) (test rkkr=673) 3.42 uIU/mL 0.35-4.94 BASIC METABOLIC [id number] 06:08:00* Test Item Value Reference Range Comments SODIUM (BEAKER) (test vqjf=948) 138 meq/L 136-145 POTASSIUM (BEAKER) (test ygzy=239) 3.5 meq/L 3.5-5.1 CHLORIDE (BEAKER) (test cjex=585) 103 meq/L 98-107 CO2 (BEAKER) (test khmy=516) 23 meq/L 22-29 BLOOD UREA NITROGEN (BEAKER) (test wpmn=675) 23 mg/dL 7-21 CREATININE (BEAKER) (test qhbc=853) 1.24 mg/dL 0.57-1.25 GLUCOSE RANDOM (BEAKER) (test rhhd=965) 112 mg/dL 70-105 CALCIUM (BEAKER) (test tzsr=294) 9.2 mg/dL 8.4-10.2 EGFR (BEAKER) (test rane=4272) 57 mL/min/1.73 sq m ESTIMATED GFR IS NOT ACCURATE CREATININE CLEARANCE IN PREDICTING GLOMERULAR FILTRATION RATE. ESTIMATED GFR IS NOT APPLICABLE FOR DIALYSIS PATIENTS. B-TYPE NATRIURETIC FACTOR (BNP)2017-04-09 06:01:00* Test Item Value Reference Range Comments B-TYPE NATRIURETIC PEPTIDE (BEAKER) (test uyiw=596) 145 pg/mL 0-100 PROTHROMBIN TIME/[id number] 05:35:00* Test Item Value Reference Range Comments PROTIME (BEAKER) (test ifjj=828) 20.8 seconds 11.7-14.7 INR (BEAKER) (test nvrh=009) 1.8 <=5.9 RECOMMENDED COUMADIN/WARFARIN INR THERAPY RANGESSTANDARD DOSE: 2.0 - 3.0 Includes: PROPHYLAXIS for venous thrombosis, systemic embolization; TREATMENT for venous thrombosis and/or pulmonary embolus.HIGH RISK: Target INR is 2.5-3.5 for patients with mechanical heart valves.POCT-GLUCOSE [id number] 21:52:00 * Test Item Value Reference Range Comments POC-GLUCOSE METER (BEAKER) (test ursb=7693) 167 mg/dL 70-110 TESTED AT [facility] [address] [facility] [address] CBC W/PLT COUNT & AUTO [id number] 15:01:00* Test Item Value Reference Range Comments WHITE BLOOD CELL COUNT (BEAKER) (test libq=640) 15.0 K/ L 3.5-10.5 RED BLOOD CELL COUNT (BEAKER) (test wmhg=644) 4.49 M/ L 4.63-6.08 HEMOGLOBIN (BEAKER) (test kzxn=072) 12.6 GM/DL 13.7-17.5 HEMATOCRIT (BEAKER) (test awql=121) 38.5 % 40.1-51.0 MEAN CORPUSCULAR VOLUME (BEAKER) (test vuxb=395) 85.7 fL 79.0-92.2 MEAN CORPUSCULAR HEMOGLOBIN (BEAKER) (test rqpi=627) 28.1 pg 25.7-32.2 MEAN CORPUSCULAR HEMOGLOBIN CONC (BEAKER) (test uvly=639) 32.7 GM/DL 32.3- 36.5 RED CELL DISTRIBUTION WIDTH (BEAKER) (test wwhg=465) 15.4 % 11.6-14.4 PLATELET COUNT (BEAKER) (test aowe=802) 147 K/CU MM 150-450 MEAN PLATELET VOLUME (BEAKER) (test vsja=560) 10.3 fL 9.4-12.4 NUCLEATED RED BLOOD CELLS (BEAKER) (test tvir=154) 0 /100 WBC 0-0 NEUTROPHILS RELATIVE PERCENT (BEAKER) (test cial=574) 86 % LYMPHOCYTES RELATIVE PERCENT (BEAKER) (test lnuf=344) 8 % MONOCYTES RELATIVE PERCENT (BEAKER) (test ijdv=435) 5 % EOSINOPHILS RELATIVE PERCENT (BEAKER) (test rftt=484) 0 % BASOPHILS RELATIVE PERCENT (BEAKER) (test dprj=411) 0 % NEUTROPHILS ABSOLUTE COUNT (BEAKER) (test trak=035) 12.92 K/ L 1.78-5.38 LYMPHOCYTES ABSOLUTE COUNT (BEAKER) (test jicf=938) 1.14 K/ L 1.32-3.57 MONOCYTES ABSOLUTE COUNT (BEAKER) (test rhep=470) 0.77 K/ L 0.30-0.82 EOSINOPHILS ABSOLUTE COUNT (BEAKER) (test loba=461) 0.00 K/ L 0.04-0.54 BASOPHILS ABSOLUTE COUNT (BEAKER) (test hlez=598) 0.04 K/ L 0.01-0.08 IMMATURE GRANULOCYTES-RELATIVE PERCENT (BEAKER) (test psqn=2593) 1 % 0-1 (MANUAL DIFFERENTIAL)2017-04-08 15:01:00* Test Item Value Reference Range Comments TOTAL COUNTED (BEAKER) (test oqrf=5433) WBC MORPHOLOGY (BEAKER) (test yjar=157) Normal PLT MORPHOLOGY (BEAKER) (test fbrg=287) Normal RBC MORPHOLOGY (BEAKER) (test ctki=511) Normal POCT-GLUCOSE [id number] 12:00:00* Test Item Value Reference Range Comments POC-GLUCOSE METER (BEAKER) (test pgei=3232) 127 mg/dL 70-110 TESTED AT [facility] [address] [facility] [address] BASIC METABOLIC [id number] 10:37:00* Test Item Value Reference Range Comments SODIUM (BEAKER) (test qreu=617) 136 meq/L 136-145 POTASSIUM (BEAKER) (test hpsf=937) 3.1 meq/L 3.5-5.1 CHLORIDE (BEAKER) (test busn=389) 102 meq/L 98-107 CO2 (BEAKER) (test cbvi=878) 26 meq/L 22-29 BLOOD UREA NITROGEN (BEAKER) (test oflp=195) 23 mg/dL 7-21 CREATININE (BEAKER) (test xmsk=967) 1.48 mg/dL 0.57-1.25 GLUCOSE RANDOM (BEAKER) (test ejiu=082) 162 mg/dL 70-105 CALCIUM (BEAKER) (test ofjl=505) 9.0 mg/dL 8.4-10.2 EGFR (BEAKER) (test twra=1247) 46 mL/min/1.73 sq m ESTIMATED GFR IS NOT ACCURATE CREATININE CLEARANCE IN PREDICTING GLOMERULAR FILTRATION RATE. ESTIMATED GFR IS NOT APPLICABLE FOR DIALYSIS PATIENTS. POCT-GLUCOSE [id number] 08:14:00* Test Item Value Reference Range Comments POC-GLUCOSE METER (BEAKER) (test otpg=5679) 115 mg/dL 70-110 TESTED AT [facility] [address] [facility] [address] PROTHROMBIN TIME/[id number] 05:34:00* Test Item Value Reference Range Comments PROTIME (BEAKER) (test tnyf=878) 23.4 seconds 11.7-14.7 INR (BEAKER) (test bjzp=496) 2.1 <=5.9 RECOMMENDED COUMADIN/WARFARIN INR THERAPY RANGESSTANDARD DOSE: 2.0 - 3.0 Includes: PROPHYLAXIS for venous thrombosis, systemic embolization; TREATMENT for venous thrombosis and/or pulmonary embolus.HIGH RISK: Target INR is 2.5-3.5 for patients with mechanical heart valves.POCT-GLUCOSE [id number] 21:51:00 * Test Item Value Reference Range Comments POC-GLUCOSE METER (BEAKER) (test ypoj=3937) 179 mg/dL 70-110 TESTED AT [place] [id number] [facility] [address] BASIC METABOLIC [id number] 21:36:00* Test Item Value Reference Range Comments SODIUM (BEAKER) (test dmuw=573) 133 meq/L 136-145 POTASSIUM (BEAKER) (test wuan=049) 3.5 meq/L 3.5-5.1 CHLORIDE (BEAKER) (test fhit=578) 97 meq/L 98-107 CO2 (BEAKER) (test xyuk=696) 23 meq/L 22-29 BLOOD UREA NITROGEN (BEAKER) (test hbbg=075) 21 mg/dL 7-21 CREATININE (BEAKER) (test ygjt=656) 1.55 mg/dL 0.57-1.25 GLUCOSE RANDOM (BEAKER) (test vgna=455) 171 mg/dL 70-105 CALCIUM (BEAKER) (test bnhg=774) 9.9 mg/dL 8.4-10.2 EGFR (BEAKER) (test yxso=4641) 44 mL/min/1.73 sq m ESTIMATED GFR IS NOT ACCURATE CREATININE CLEARANCE IN PREDICTING GLOMERULAR FILTRATION RATE. ESTIMATED GFR IS NOT APPLICABLE FOR DIALYSIS PATIENTS. CBC W/PLT COUNT & AUTO [id number] 21:24:00* Test Item Value Reference Range Comments WHITE BLOOD CELL COUNT (BEAKER) (test hzxs=269) 16.2 K/ L 3.5-10.5 RED BLOOD CELL COUNT (BEAKER) (test oexx=536) 4.91 M/ L 4.63-6.08 HEMOGLOBIN (BEAKER) (test jbzf=737) 13.7 GM/DL 13.7-17.5 HEMATOCRIT (BEAKER) (test fuuv=930) 41.7 % 40.1-51.0 MEAN CORPUSCULAR VOLUME (BEAKER) (test jfhj=862) 84.9 fL 79.0-92.2 MEAN CORPUSCULAR HEMOGLOBIN (BEAKER) (test ewvs=341) 27.9 pg 25.7-32.2 MEAN CORPUSCULAR HEMOGLOBIN CONC (BEAKER) (test fusr=116) 32.9 GM/DL 32.3- 36.5 RED CELL DISTRIBUTION WIDTH (BEAKER) (test udzy=965) 15.3 % 11.6-14.4 PLATELET COUNT (BEAKER) (test rirc=150) 179 K/CU MM 150-450 MEAN PLATELET VOLUME (BEAKER) (test otbn=920) 9.5 fL 9.4-12.4 NUCLEATED RED BLOOD CELLS (BEAKER) (test icgt=223) 0 /100 WBC 0-0 NEUTROPHILS RELATIVE PERCENT (BEAKER) (test mwcu=386) 84 % LYMPHOCYTES RELATIVE PERCENT (BEAKER) (test dcxs=977) 10 % MONOCYTES RELATIVE PERCENT (BEAKER) (test rcfx=967) 6 % EOSINOPHILS RELATIVE PERCENT (BEAKER) (test oqrj=499) 0 % BASOPHILS RELATIVE PERCENT (BEAKER) (test pvxa=743) 0 % NEUTROPHILS ABSOLUTE COUNT (BEAKER) (test jylf=268) 13.57 K/ L 1.78-5.38 LYMPHOCYTES ABSOLUTE COUNT (BEAKER) (test pqrx=833) 1.56 K/ L 1.32-3.57 MONOCYTES ABSOLUTE COUNT (BEAKER) (test tssz=724) 0.94 K/ L 0.30-0.82 EOSINOPHILS ABSOLUTE COUNT (BEAKER) (test epba=330) 0.00 K/ L 0.04-0.54 BASOPHILS ABSOLUTE COUNT (BEAKER) (test vmun=043) 0.03 K/ L 0.01-0.08 IMMATURE GRANULOCYTES-RELATIVE PERCENT (BEAKER) (test gkto=2600) 1 % 0-1 POCT-LACTIC ACID, [id number] 21:12:00* Test Item Value Reference Range Comments POC-LACTIC ACID, VENOUS (BEAKER) (test loyf=9125) 1.6 mmol/L 0.9-1.7 TESTED AT [facility] [address] [facility] [address]
[2018-01-18] MEDS ORDERED: CLINDAMYCIN PHOS 900MG/ D5W 50 50 ML IV ONE (15:45)
[2018-01-18 16:33] LABS: CLARITY,URINE CLEAR (CLEAR); COLOR,URINE YELLOW (YELLOW); LEUKOCYTE ESTERASE ,URINE TRACE (NEGATIVE)
[2018-01-18 16:34] LABS: BILIRUBIN,URINE NEGATIVE (NEGATIVE); KETONES,URINE NEGATIVE (NEGATIVE); NITRITE,URINE NEGATIVE (NEGATIVE); PROTEIN,URINE DIPSTICK 2+ (NEGATIVE); URINE UROBILINOGEN 0.2 mg/dL (0.2 - 1)
[2018-01-18 16:45] LABS: HYALINE CASTS 0-1 (0-1)
[2018-01-18 16:47] LABS: RBC,URINE 0-5 /HPF (0-5)
[2018-01-18 16:48] LABS: EPITHELIAL CELLS,URINE FEW /LPF
[2018-01-18 17:33] LABS: BASOPHILS % 0.3 % (0.0-1.0); EOSINOPHILS # (AUTO) 0.1 (0.0-0.4); EOSINOPHILS % 1.3 % (0.0-6.0); HEMATOCRIT 43.5 % (38.2-49.6); HEMOGLOBIN 13.9 g/dL (14.0-18.0); LYMPHOCYTES # (AUTO) 1.7 (1.0-3.2); LYMPHOCYTES % 18.8 % (18.0-39.1); MEAN CORPUSCULAR HEMOGLOBIN 26.1 pg (28-32); MEAN CORPUSCULAR VOLUME 81.8 fL (81-99); MONOCYTES # (AUTO) 0.7 (0.2-0.8); MONOCYTES % 7.7 % (4.4-11.3); NEUTROPHILS # (AUTO) 6.4 (2.1-6.9); NEUTROPHILS % 71.5 % (38.7-80.0); PLATELET COUNT 245 x10e3/uL (140-360); RED BLOOD COUNT 5.32 x10e6/uL (4.3-5.7); RED CELL DISTRIBUTION WIDTH 15.9 % (11.7-14.4)
[2018-01-18 17:38] LABS: INR 2.77; PROTHROMBIN TIME 27.5 seconds (11.9-14.5)
[2018-01-18 17:39] LABS: PARTIAL THROMBOPLASTIN TIME 54.8 seconds (23.8-35.5)
[2018-01-18 17:42] LABS: ALBUMIN 3.3 g/dL (3.5-5.0); ALBUMIN/GLOBULIN RATIO 0.6 (0.8-2.0); CALCIUM 10.3 mg/dL (8.4-10.2); CREATININE, SERUM 1.28 mg/dL (0.72-1.25)
[2018-01-18 17:57] LABS: CREATINE KINASE 66 IU/L (30-200)
[2018-01-18] MEDS ORDERED: ONDANSETRON HCL 4 MG ORAL DISINTEGRATING TAB PO PRN (18:30)
[2018-01-18] MEDS ORDERED: DEXTROSE 50% SYRINGE 50 ML IV PRN (18:30)
[2018-01-18] MEDS ORDERED: MORPHINE SULFATE 2 MG/ML SYR IV PRN (18:30)
--- OUTSIDE RECORDS SUMMARY | 2018-01-18 18:48 | XMS REPORT | Clinical Summary ---
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 General Internal Medicine Bjorn Dela Cruz MD Cellulitis of right foot - Encounter Michelle Win (Primary Dx);Fever, 04/11/2017 MD Nelly unspecified fever Erasto Maritn MD cause;Leukocytosis, unspecified type;Essential hypertension;Sepsis, due to unspecified organism ([facility]) after 01/17/2017 Social History Tobacco Use Types [...] Range POC-Glucose Meter 148 (H)Comment: TESTED AT [address] 70 - 110 mg /dL [facility] [id number] Specimen Performing Laboratory Blood [address] [address] * CBC with platelet count + automated [...] Specimen Performing Laboratory Blood - Arm, Left [address] [address] * Prothrombin time/INR (04/11/2017 5:21 AM) Only the most recent of 4 results within the time period is included. Component Value Ref Range Protime 20.5 (H) 11.7 - 14.7 seconds INR 1.8 <=5.9 Specimen Performing Laboratory Blood - Arm, Left [address] [address] Narrative RECOMMENDED COUMADIN/WARFARIN INR THERAPY RANGES STANDARD [...] --------- - ------ CBC with platelet count ...[[id number]]AbnormalFinal result Please view results for these tests [...] Specimen Performing Laboratory Blood - Arm, Left [address] [address] * PERIPHERAL VASCULAR REPORT - SCAN (04/10/2017 1:20 PM) Only the most recent of 2 results within the time period is included. * Venous doppler leg, right (04/10/2017 12:20 PM) Component Value Ref Range Ejection Fraction Specimen Performing Laboratory [facility] MKCKESSON CPACS Impressions Right Impression [...] MAXIMILIANO NAIR Date of Study 04/10/2017 GEM [id number] Visit Number [id number] Male Accession Number [id number] of 1940 [facility] Room Number 739 Hannah Lomeli. JACQUELINE CarterT [...] Study 04/10/2017 GEM Age 76 Visit Number [id number] Gender Male Accession Number [id number] Date of 1940 [facility] Room Number 739 Physician Gabbie Cardona Relay Tester Helper Klaudia Velazquez Interpreting Balaji Corral, T Physician [...] % Specimen Performing Laboratory Blood - Arm, [place] [address] * Vancomycin level, trough (04/10/2017 5:16 AM) Component Value Ref Range Vancomycin Tr 8.2 (L) 10.0 - 20.0 ug/mL Specimen Performing Laboratory Blood - Arm, [place] [address] Narrative Please draw vancomycin trough \\R\\30 minutes prior to administration time; For trough >20 mcg/mL, hold next dose and contact pharmacy and MD. * Urinalysis w/Microscopic + Reflex to Culture (04/09/2017 9:45 AM) Component Value Ref Range Color, UA Yellow Clarity, UA Hazy Specific [place], UA 1.017 1.001 - 1.035 pH, UA [...] Specimen Performing Laboratory Urine - Urine, Voided [address] [address] * Urine culture (04/09/2017 9:45 AM) Component Value Ref Range Result No growth Specimen Performing Laboratory Urine - Urine, [place] [address] * TSH/Free T4 If Indicated (04/09/2017 5:03 AM) Component Value Ref Range TSH 3.42 0.35 - 4.94 uIU/mL Specimen Performing Laboratory Blood [place] [id number] * B-type Natriuretic Factor (BNP) (04/09/2017 5:03 AM) Component Value Ref Range BNP 145 (H) 0 - 100 pg/mL Specimen Performing Laboratory Blood [facility] [address] [place] [address] * Arterial doppler legs bilateral (04/08/2017 5:30 PM) Component Value Ref Range Ejection Fraction Specimen Performing Laboratory [facility] MK[facility] CPACS Impressions Right Impression [...] MAXIMILIANO NAIR Date of Study 04/08/2017 GEM [id number] Visit Number [id number] Male Accession Number [id number] of 1940 [facility] SonographerHeaFamilia Noel Alejandro Physician [...] Study 04/08/2017 GEM Age 76 Visit Number [id number] Gender Male Accession Number [id number] Date of 1940 Referring [facility] Room Number 739 Physician Relay Tester Helper Familia Cevallos [facility] Physician , RPVI Procedure Type of Study: [...] Specimen Performing Laboratory Blood - Arm, [place] [address] * ECG 12 lead (04/08/2017 12:36 AM) Specimen Performing Laboratory GE MUSE Narrative Ventricular Rate 114 BPM Atrial Rate 147 BPM QRS Duration 96 ms Q-T Interval 350 ms QTC Calculation(Bazett) 482 ms R [place] 4 degrees T [place] 64 degrees Atrial fibrillation with rapid ventricular [...] 350 ms QTC Calculation(Bazett) 482 ms R [place] 4 degrees T [place] 64 degrees Atrial fibrillation with rapid ventricular [...] Range POC-Lactic Acid, Venous 1.6Comment: TESTED AT [address] 0.9 - 1.7 mmol/[place] [address] Specimen Performing Laboratory Blood [address] [address] * Blood culture (04/07/2017 9:00 PM) Only the most recent of 2 results within the time period is included. Component Value Ref Range Result No growth in 5 days Specimen Performing Laboratory Blood - Arm, Left [address] [address] * XR chest 1 view portable / [...] MD Report Verified Date/Time:04/07/2017 20:23:58 Reading Location: [address] Reading Room Procedure Note Interface, External [...] Report Verified Date/Time: 04/07/2017 20:23:58 Reading Location: [address] Reading Room * XR foot 3 [...] MD Report Verified Date/Time:04/07/2017 20:37:04 Reading Location: [address] Reading Room Procedure Note Interface, External [...] Report Verified Date/Time: 04/07/2017 20:37:04 Reading Location: [address] Reading Room after 01/17/2017
[2018-01-18] MEDS ORDERED: OXYBUTYNIN CHLOR5 M1 PO (18:49)
[2018-01-18] MEDS ORDERED: VANCOMYCIN 1GM/NS 250 ML 250 ML IV SCH (19:30)
[2018-01-18] MEDS: SODIUM CHLORIDE 0.9% 1000ML 1,000 ML IV SCH (20:16)
[2018-01-18] MEDS: CEFEPIME HCL 1 GM VIAL IV SCH (20:16)
[2018-01-18] MEDS: INSULIN REGULAR, HUMAN 100 UNIT/1 ML 3ML VIAL SQ SCH (20:27)
[2018-01-18 21:23] VITALS: BP 193/94
[2018-01-18 21:27] VITALS: BP 193/94
[2018-01-18] MEDS ORDERED: MULTI-VITAMIN1 EACH (21:27)
[2018-01-18] MEDS ORDERED: BENADRYL25 M1 (21:27)
[2018-01-18] MEDS ORDERED: PIPERACILLIN/TAZO 2.25 GM 50 ML IV SCH (22:00)
[2018-01-19] VITALS (11 sets, daily range): BP systolic 140–197; BP diastolic 75–91
[2018-01-19] MEDS: SODIUM CHLORIDE 0.9% 1000ML 1,000 ML IV SCH (05:15)
[2018-01-19 06:33] LABS: BASOPHILS % 0.4 % (0.0-1.0); EOSINOPHILS # (AUTO) 0.2 (0.0-0.4); EOSINOPHILS % 2.1 % (0.0-6.0); HEMOGLOBIN 12.7 g/dL (14.0-18.0); LYMPHOCYTES # (AUTO) 1.6 (1.0-3.2); LYMPHOCYTES % 21.9 % (18.0-39.1); MEAN CORPUSCULAR HEMOGLOBIN 26.2 pg (28-32); MEAN CORPUSCULAR HGB CONC 31.8 g/dL (31-35); MEAN CORPUSCULAR VOLUME 82.5 fL (81-99); MONOCYTES # (AUTO) 0.7 (0.2-0.8); MONOCYTES % 9.2 % (4.4-11.3); NEUTROPHILS # (AUTO) 4.7 (2.1-6.9); NEUTROPHILS % 65.8 % (38.7-80.0); PLATELET COUNT 213 x10e3/uL (140-360); RED BLOOD COUNT 4.85 x10e6/uL (4.3-5.7); RED CELL DISTRIBUTION WIDTH 16.1 % (11.7-14.4)
[2018-01-19 07:02] LABS: ALANINE AMINOTRANSFERASE 17 IU/L (0-55); ALBUMIN 2.8 g/dL (3.5-5.0); ALBUMIN/GLOBULIN RATIO 0.6 (0.8-2.0); ALKALINE PHOSPHATASE 73 IU/L (40-150); ANION GAP 12.4 mmol/L (8-16); BLOOD UREA NITROGEN 16 mg/dL (7-26); BUN/CREATININE RATIO 14 (6-25); CALCIUM 9.8 mg/dL (8.4-10.2); CARBON DIOXIDE 29 mmol/L (22-29); CHLORIDE 102 mmol/L (98-107); CREATININE, SERUM 1.12 mg/dL (0.72-1.25); EST GLOMERULAR FILTRATION RATE > 60 ML/MIN (60-); GLUCOSE 109 mg/dL (74-118); POTASSIUM 3.4 mmol/L (3.5-5.1); SODIUM 140 mmol/L (136-145)
[2018-01-19] MEDS: INSULIN REGULAR, HUMAN 100 UNIT/1 ML 3ML VIAL SQ SCH ×4 (07:30→20:18)
[2018-01-19] MEDS: CEFEPIME HCL 1 GM VIAL IV SCH (08:42)
[2018-01-19] MEDS ORDERED: HYDROCODONE/APAP 5MG-325MG TAB PO PRN (10:45)
[2018-01-19] MEDS ORDERED: TRAMADOL HCL 50 MG TAB PO PRN (10:45)
[2018-01-19] MEDS ORDERED: POTASSIUM CHLORIDE 20 MEQ TAB CR PO NR (11:00)
[2018-01-19] MEDS ORDERED: FUROSEMIDE INJ 10 MG/ML 4 ML VIAL IV NR (11:00)
[2018-01-19] MEDS ORDERED: ASPIRIN 325 MG TAB PO SCH (11:15)
[2018-01-19] MEDS: OXYBUTYNIN CHLORIDE XL 5 MG TAB PO SCH (11:24)
[2018-01-19] MEDS: QUINAPRIL HCL 20 MG TAB PO SCH (11:24)
[2018-01-19] MEDS: TRIAMTERENE/HCTZ 37.5-25 MG TAB PO SCH (11:24)
[2018-01-19] MEDS: ATENOLOL 50 MG TAB PO SCH (11:37)
[2018-01-19] MEDS: ASPIRIN 81 MG CHEW TAB PO SCH (11:37)
[2018-01-19] MEDS: FAMOTIDINE 20 MG TAB PO SCH (17:50)
[2018-01-19] MEDS: WARFARIN SOD 5 MG TAB PO SCH (17:50)
[2018-01-19] MEDS: TRAMADOL HCL 50 MG TAB PO SCH (17:50)
[2018-01-19] MEDS: SIMVASTATIN 40 MG TAB PO SCH (20:17)
[2018-01-19] MEDS: VANCOMYCIN 1GM/NS 250 ML 250 ML IV SCH (20:22)
[2018-01-19] MEDS: ACETAMINOPHEN 325 MG TAB PO PRN (20:29)
[2018-01-19] MEDS ORDERED: HYDRALAZINE HCL 20 MG/ML VIAL IV PRN (22:30)
[2018-01-19] MEDS ORDERED: NIFEDIPINE CR 30 MG TAB PO ONE (22:30)
[2018-01-20] VITALS: BP 124/59
[2018-01-20] MEDS: ACETAMINOPHEN 325 MG TAB PO PRN (03:52)
[2018-01-20 04:00] VITALS: BP 177/85
[2018-01-20] MEDS: INSULIN REGULAR, HUMAN 100 UNIT/1 ML 3ML VIAL SQ SCH ×3 (07:30→16:30)
[2018-01-20 07:38] VITALS: BP 174/84
[2018-01-20 07:42] LABS: BASOPHILS % 0.4 % (0.0-1.0); EOSINOPHILS # (AUTO) 0.2 (0.0-0.4); EOSINOPHILS % 2.2 % (0.0-6.0); HEMATOCRIT 41.9 % (38.2-49.6); HEMOGLOBIN 13.4 g/dL (14.0-18.0); LYMPHOCYTES # (AUTO) 1.8 (1.0-3.2); LYMPHOCYTES % 23.1 % (18.0-39.1); MEAN CORPUSCULAR VOLUME 81.2 fL (81-99); MONOCYTES # (AUTO) 0.6 (0.2-0.8); MONOCYTES % 8.1 % (4.4-11.3); NEUTROPHILS # (AUTO) 5.1 (2.1-6.9); NEUTROPHILS % 65.8 % (38.7-80.0); PLATELET COUNT 224 x10e3/uL (140-360); RED BLOOD COUNT 5.16 x10e6/uL (4.3-5.7); RED CELL DISTRIBUTION WIDTH 15.8 % (11.7-14.4)
[2018-01-20 07:52] LABS: INR 2.3; PROTHROMBIN TIME 23.8 seconds (11.9-14.5)
[2018-01-20 08:00] LABS: ANION GAP 12.4 mmol/L (8-16); BLOOD UREA NITROGEN 12 mg/dL (7-26); BUN/CREATININE RATIO 12 (6-25); CARBON DIOXIDE 28 mmol/L (22-29); CHLORIDE 101 mmol/L (98-107); CREATININE, SERUM 1.01 mg/dL (0.72-1.25); EST GLOMERULAR FILTRATION RATE > 60 ML/MIN (60-); GLUCOSE 115 mg/dL (74-118); MAGNESIUM 1.8 MG/DL (1.3-2.1); POTASSIUM 3.4 mmol/L (3.5-5.1); SODIUM 138 mmol/L (136-145)
[2018-01-20] MEDS: FAMOTIDINE 20 MG TAB PO SCH ×2 (08:30→17:18)
[2018-01-20] MEDS: QUINAPRIL HCL 20 MG TAB PO SCH (09:11)
[2018-01-20] MEDS: VANCOMYCIN 1GM/NS 250 ML 250 ML IV SCH ×2 (09:11→21:04)
[2018-01-20] MEDS: OXYBUTYNIN CHLORIDE XL 5 MG TAB PO SCH (09:11)
[2018-01-20] MEDS: ASPIRIN 81 MG CHEW TAB PO SCH (09:11)
[2018-01-20] MEDS: TRIAMTERENE/HCTZ 37.5-25 MG TAB PO SCH (09:11)
[2018-01-20] MEDS: MUPIROCIN 2% OINT 22 GM TUBE TOP SCH (09:12)
[2018-01-20] MEDS: TRAMADOL HCL 50 MG TAB PO SCH ×2 (09:12→17:19)
[2018-01-20] MEDS: ATENOLOL 50 MG TAB PO SCH (09:12)
[2018-01-20 11:39] VITALS: BP 157/89
[2018-01-20] MEDS ORDERED: DIPHENHYDRAMINE HCL 25 MG CAP PO PRN (13:45)
[2018-01-20] MEDS: NIFEDIPINE CR 30 MG TAB PO SCH ×2 (14:09→21:04)
[2018-01-20] MEDS ORDERED: POTASSIUM CHLORIDE 20 MEQ TAB CR PO NR (14:30)
[2018-01-20 16:31] VITALS: BP 136/62
[2018-01-20] MEDS: WARFARIN SOD 5 MG TAB PO SCH (17:19)
--- NOTE | 2018-01-20 18:36 | Diagnostic Imaging Report ---
PROCEDURE: Frontal and lateral views of the chest. COMPARISON: None. INDICATIONS: FOOT INFECTION FINDINGS: Lines/tubes: None. Lungs: The lungs are well inflated. 3-4 mm nodular density projecting between the posterior aspects of the left fourth and fifth ribs in the right upper lobe. A similar sized nodular density is noted in the right upper lobe projecting between the posterior aspect of the right fifth and sixth ribs. There is no evidence of pneumonia or pulmonary edema. Pleura: There is no pleural effusion or pneumothorax. Heart and mediastinum: Cardiac silhouette is unremarkable. Pulmonary vessels are normal. Bones: No acute bony abnormality. Degenerative changes in the thoracic spine. IMPRESSION: 1. No acute cardiopulmonary abnormalities. 2. 3-4 mm nodular densities in the upper lobes. These may represent pulmonary nodules or calcified granulomas. Prior films, if available, would be helpful for comparison. If no prior films can be obtained, recommend followup chest, PA and lateral in 3-6 months to document stability. Andrew Rivas M.D. Dictated by: Andrew Rivas M.D. on 01/20/2018 at 18:37 Electronically approved by: Andrew Rivas M.D. on 01/20/2018 at 18:37
[2018-01-20 20:00] VITALS: BP 152/76
[2018-01-20] MEDS: SIMVASTATIN 40 MG TAB PO SCH (21:05)
[2018-01-21] VITALS: BP 130/63
--- NOTE | 2018-01-21 02:08 | Consultation ---
DATE OF CONSULTATION: January 20, 2018 CARDIAC CONSULTATION REASON FOR CONSULTATION: Severe cellulitis of the right lower extremity with severe PVD, history of nonhealing ulcers. HISTORY: This is a 77-year-old gentleman who for the last 10 days or so was having severe infection and cellulitis of the right lower extremity. The infection is involving all the right foreleg. He contacted his physician at [facility]. He was given clindamycin. He came to the emergency room on Tuesday with worsening infection and started on vancomycin. Severe infection with severe redness and edema of the right lower extremity from the knee level all the way to the foot. Small ulcer on the right heel. There is also scaling and fissure in the right heel. Venous Doppler showed no DVT. Arterial Doppler showed severe below knee arterial insufficiency. Cardiac consultation is obtained to evaluate his vascular status. He is known with severe hypertension, obesity, diabetes mellitus. He does have severe venous stasis bilaterally. He had a history of ulcer on the right heel in August 2016, which took 1 year to heal. He does have chronic discoloration, chronic skin changes and chronic venous stasis of his bilateral lower extremities, more pronounced on the right. Patient's activities are limited. Cardiac calvin, he had history of PCI many years ago. Unfortunately, he did not have any followup with any stress test or any other test. He does have easy fatigability and severe shortness of breath on exertion. He is class III [place] [employer] and angina-like symptoms. Despite his limited activity, he is symptomatic. He does have sleep apnea. He does have orthopnea, paroxysmal nocturnal dyspnea and chronic swelling of the lower extremities. There is a cough. There is definitely sleep apnea. REVIEW OF SYSTEMS: Was extensive to all systems. Only positive and negative ones will be summarized for clarity. GENERAL: Fever and chills. PULMONARY: Cough, shortness of breath on exertion and easy fatigability. CARDIAC: As per above. GI: No hematemesis. No melena. : No hematuria. No dysuria. Increased frequency of urination. MUSCULOSKELETAL: Aches and pain. NEUROLOGICAL: Severe peripheral neuropathy of the lower extremities. ENDOCRINE: Diabetic. LOWER EXTREMITIES: Severe venous stasis and severe skin changes in addition to the peripheral arterial vascular disease. ALLERGIES: CODEINE, PENICILLIN. CURRENT MEDICATIONS 1. Vancomycin. 2. Pepcid. 3. Insulin sliding scale. 4. Warfarin 7.5 mg a day. 5. 40 mg a day. 6. Zocor 40 mg a day. 7. Dyazide 1 tablet a day. 8. Nifedipine 60 mg a day. 9. Atenolol 75 mg a day. 10. Lasix 40 mg a day. 11. Aspirin 81 mg a day. PAST MEDICAL HISTORY 1. Morbid obesity. 2. Diabetes mellitus. 3. Atrial fibrillation. 4. Hypertension. 5. Low back pain. 6. Dyslipidemia. 7. Coronary artery disease, status post PCI many years ago. 8. Appendectomy. 9. Cholecystectomy. 10. Spine surgery. 11. Cataract surgery. 12. Right and left knee replacement surgery. 13. Severe venous stasis of the lower extremities with chronic skin changes. 14. History of nonhealing ulcers. FAMILY HISTORY: Positive for diabetes mellitus and hypertension. PHYSICAL EXAMINATION GENERAL: Obese gentleman. VITALS: Height of 6 feet, weight of 250 pounds. Blood pressure 130/60, heart rate of 60, respiratory rate of 18, temperature 98 Fahrenheit. HEENT: Pupils are reactive. NECK: No elevation of jugular venous pulsation. Bilateral carotid bruit. CHEST: Decreased air entry in bases. HEART: Regular rate. Increased intensity of 2nd heart sound. ABDOMEN: Soft with good bowel sounds. EXTREMITIES: Severe skin changes of both lower extremities. On the right lower extremity, there is a dressing of the foot. There is severe edema. Severe cellulitis on top of chronic venous stasis. No pulses in both feet. Fissuring, scaling and changes in the right foot with decreased capillary refill. NEUROLOGIC: Awake, alert and oriented. No motor deficits. LAB DATA: INR of 2.3. BUN of 12, creatinine of 1.1. White blood cell count of 7.7, hemoglobin 13.4, hematocrit 42%, and platelet count of 224,000. IMPRESSION AND PLAN 1. Severe cellulitis of the right lower extremity on top of chronic venous changes and severe peripheral arterial vascular disease. 2. Threatening limb loss. 3. Severe peripheral arterial vascular disease. 4. Advanced cardiac disease. 5. Diabetes mellitus with end-organ damage. 6. Morbid obesity. 7. Dyslipidemia. 8. Coronary artery disease: Status post prior percutaneous coronary intervention. 9. No followup on his cardiac and vascular issues in a long time. 10. Sleep apnea. Cardiac calvin, my recommendation are as follows: Continue the aspirin. Continue his ANUSHKA inhibitors, statin, diuretics. Control his blood pressure. Continue IV antibiotics. His arterial Doppler is very abnormal. Will schedule the patient for angiogram with possible intervention providing his INR is going to reasonable level. He is high risk for complication because of his body habitus and his morbid obesity. He is at high risk of complications because of his advanced venous and arterial insufficiency. I explained for him he needs to have full cardiac workup. All of this was discussed and explained to the patient. Questions are answered. Job#: [id number] LUISITO
[2018-01-21 04:00] VITALS: BP 173/80
[2018-01-21 06:26] LABS: BASOPHILS % 0.4 % (0.0-1.0); EOSINOPHILS # (AUTO) 0.2 (0.0-0.4); EOSINOPHILS % 2.5 % (0.0-6.0); HEMATOCRIT 42.4 % (38.2-49.6); HEMOGLOBIN 13.6 g/dL (14.0-18.0); LYMPHOCYTES % 24.8 % (18.0-39.1); MEAN CORPUSCULAR HEMOGLOBIN 25.8 pg (28-32); MEAN CORPUSCULAR HGB CONC 32.1 g/dL (31-35); MEAN CORPUSCULAR VOLUME 80.5 fL (81-99); MONOCYTES # (AUTO) 0.6 (0.2-0.8); MONOCYTES % 7.3 % (4.4-11.3); NEUTROPHILS # (AUTO) 5.2 (2.1-6.9); NEUTROPHILS % 64.6 % (38.7-80.0); PLATELET COUNT 239 x10e3/uL (140-360); RED BLOOD COUNT 5.27 x10e6/uL (4.3-5.7); RED CELL DISTRIBUTION WIDTH 15.7 % (11.7-14.4)
[2018-01-21 06:58] LABS: ALANINE AMINOTRANSFERASE 21 IU/L (0-55); ALBUMIN 2.9 g/dL (3.5-5.0); ALBUMIN/GLOBULIN RATIO 0.6 (0.8-2.0); ALKALINE PHOSPHATASE 70 IU/L (40-150); ANION GAP 13.3 mmol/L (8-16); BLOOD UREA NITROGEN 14 mg/dL (7-26); BUN/CREATININE RATIO 13 (6-25); CALCIUM 10.3 mg/dL (8.4-10.2); CARBON DIOXIDE 27 mmol/L (22-29); CHLORIDE 99 mmol/L (98-107); CHOL/HDL RATIO 4.4 (3.9-4.7); CHOLESTEROL 115 MD/DL (0-199); CREATININE, SERUM 1.07 mg/dL (0.72-1.25); EST GLOMERULAR FILTRATION RATE > 60 ML/MIN (60-); GLUCOSE 116 mg/dL (74-118); HDL CHOLESTEROL 26 MG/DL (40-60); LDL CHOLESTEROL 62 MG/DL (60-130); POTASSIUM 3.3 mmol/L (3.5-5.1); SODIUM 136 mmol/L (136-145); TRIGLYCERIDES 135 MG/DL (0-149)
[2018-01-21 07:03] LABS: INR 2.52; PROTHROMBIN TIME 25.5 seconds (11.9-14.5)
[2018-01-21 07:18] LABS: THYROID STIMULATING HORMONE 3.554 uIU/mL (0.350-4.940)
[2018-01-21 07:48] VITALS: BP 146/72
[2018-01-21] MEDS: OXYBUTYNIN CHLORIDE XL 5 MG TAB PO SCH (08:41)
[2018-01-21] MEDS: ASPIRIN 81 MG CHEW TAB PO SCH (08:41)
[2018-01-21] MEDS: FUROSEMIDE 40 MG TAB PO SCH (08:41)
[2018-01-21] MEDS: TRIAMTERENE/HCTZ 37.5-25 MG TAB PO SCH (08:41)
[2018-01-21] MEDS: QUINAPRIL HCL 20 MG TAB PO SCH (08:41)
[2018-01-21] MEDS: VANCOMYCIN 1GM/NS 250 ML 250 ML IV SCH ×2 (08:41→23:08)
[2018-01-21] MEDS: TRAMADOL HCL 50 MG TAB PO SCH ×2 (08:42→16:17)
[2018-01-21] MEDS: NIFEDIPINE CR 30 MG TAB PO SCH ×2 (08:42→21:00)
[2018-01-21] MEDS: MUPIROCIN 2% OINT 22 GM TUBE TOP SCH (08:42)
[2018-01-21] MEDS: ATENOLOL 50 MG TAB PO SCH (08:42)
[2018-01-21 11:56] VITALS: BP 135/70
[2018-01-21] MEDS ORDERED: POTASSIUM CHLORIDE 20 MEQ TAB CR PO NR (14:00)
[2018-01-21] MEDS ORDERED: PHYTONADIONE 10 MG/ML AMP SC NR (14:15)
[2018-01-21] MEDS ORDERED: CLOPIDOGREL BISULFATE 75 MG TAB PO ONE (14:30)
[2018-01-21 16:37] VITALS: BP 130/59
[2018-01-21 20:00] VITALS: BP 147/75
[2018-01-21] MEDS: SIMVASTATIN 40 MG TAB PO SCH (21:02)
[2018-01-22] VITALS: BP 138/66
[2018-01-22 04:00] VITALS: BP 150/69
[2018-01-22 07:23] VITALS: BP 156/78
[2018-01-22 07:39] LABS: INR 1.69; PROTHROMBIN TIME 18.7 seconds (11.9-14.5)
[2018-01-22 07:46] LABS: ANION GAP 13.5 mmol/L (8-16); CALCIUM 10.7 mg/dL (8.4-10.2); CREATININE, SERUM 1.23 mg/dL (0.72-1.25); MAGNESIUM 1.8 MG/DL (1.3-2.1); POTASSIUM 3.5 mmol/L (3.5-5.1)
[2018-01-22 07:55] LABS: VANCOMYCIN,TROUGH 21.1 ug/mL (5.0-10.0)
[2018-01-22] MEDS: TRIAMTERENE/HCTZ 37.5-25 MG TAB PO SCH (08:43)
[2018-01-22] MEDS: NIFEDIPINE CR 30 MG TAB PO SCH ×2 (08:43→20:17)
[2018-01-22] MEDS: ASPIRIN 81 MG CHEW TAB PO SCH (08:43)
[2018-01-22] MEDS: FUROSEMIDE 40 MG TAB PO SCH (08:43)
[2018-01-22] MEDS: QUINAPRIL HCL 20 MG TAB PO SCH (08:43)
[2018-01-22] MEDS: OXYBUTYNIN CHLORIDE XL 5 MG TAB PO SCH (08:43)
[2018-01-22] MEDS: ATENOLOL 50 MG TAB PO SCH (08:44)
[2018-01-22] MEDS: MUPIROCIN 2% OINT 22 GM TUBE TOP SCH (08:44)
[2018-01-22] MEDS: TRAMADOL HCL 50 MG TAB PO SCH ×2 (08:44→16:24)
[2018-01-22] MEDS ORDERED: CLOPIDOGREL BISULFATE 75 MG TAB PO SCH (09:00)
[2018-01-22] MEDS: SODIUM CHLORIDE 0.9% 1000ML 1,000 ML IV SCH (16:23)
[2018-01-22 16:32] VITALS: BP 124/62
[2018-01-22 20:00] VITALS: BP 149/74
[2018-01-22] MEDS: SIMVASTATIN 40 MG TAB PO SCH (20:17)
[2018-01-22] MEDS: ACETAMINOPHEN 325 MG TAB PO PRN (20:29)
[2018-01-23] VITALS (11 sets, daily range): BP systolic 97–152; BP diastolic 50–94
[2018-01-23] MEDS: SODIUM CHLORIDE 0.9% 1000ML 1,000 ML IV SCH ×3 (01:03→23:00)
[2018-01-23 06:29] LABS: BASOPHILS % 0.6 % (0.0-1.0); EOSINOPHILS # (AUTO) 0.2 (0.0-0.4); EOSINOPHILS % 3.2 % (0.0-6.0); HEMATOCRIT 42.1 % (38.2-49.6); HEMOGLOBIN 13.5 g/dL (14.0-18.0); LYMPHOCYTES # (AUTO) 1.7 (1.0-3.2); LYMPHOCYTES % 26.7 % (18.0-39.1); MEAN CORPUSCULAR HEMOGLOBIN 26.2 pg (28-32); MEAN CORPUSCULAR HGB CONC 32.1 g/dL (31-35); MEAN CORPUSCULAR VOLUME 81.6 fL (81-99); MONOCYTES # (AUTO) 0.4 (0.2-0.8); NEUTROPHILS # (AUTO) 3.9 (2.1-6.9); PLATELET COUNT 256 x10e3/uL (140-360); RED BLOOD COUNT 5.16 x10e6/uL (4.3-5.7); RED CELL DISTRIBUTION WIDTH 15.6 % (11.7-14.4)
[2018-01-23 06:50] LABS: INR 1.34; PROTHROMBIN TIME 15.6 seconds (11.9-14.5)
[2018-01-23 07:00] LABS: ALBUMIN/GLOBULIN RATIO 0.7 (0.8-2.0); ANION GAP 10.8 mmol/L (8-16); CALCIUM 10.1 mg/dL (8.4-10.2); CREATININE, SERUM 1.18 mg/dL (0.72-1.25); POTASSIUM 3.8 mmol/L (3.5-5.1)
[2018-01-23] MEDS: ATENOLOL 50 MG TAB PO SCH (09:00)
[2018-01-23] MEDS ORDERED: LIDOCAINE HCL 2% LOCAL 20 ML VIAL ONE (09:52)
[2018-01-23] MEDS ORDERED: MIDAZOLAM HCL 2 MG/2 ML VIAL ONE (09:52)
[2018-01-23] MEDS ORDERED: FENTANYL CITRATE/PF 100MCG/2 ML INJ ONE (09:52)
[2018-01-23] MEDS ORDERED: SODIUM CHLORIDE 0.9% 1000ML 1,000 ML ONE (09:53)
[2018-01-23] MEDS ORDERED: HEPARIN SOD/SOD CHLORIDE 2,000 ML ONE (09:53)
[2018-01-23] MEDS ORDERED: IOPAMIDOL 300MG/ML 100 ML INFUS..BTL IV ONE (09:53)
[2018-01-23] MEDS ORDERED: NITROGLYCERIN/D5W 200 MCG/ML 0 ML ONE (10:10)
[2018-01-23] MEDS ORDERED: HEPARIN SOD (PORCINE) 1000 UNIT/ML 30ML ONE (10:10)
[2018-01-23] MEDS ORDERED: HYDRALAZINE HCL 20 MG/ML VIAL ONE (11:06)
[2018-01-23] MEDS ORDERED: VANCOMYCIN 1GM/NS 250 ML 250 ML IV ONE (12:00)
[2018-01-23] MEDS: OXYBUTYNIN CHLORIDE XL 5 MG TAB PO SCH (13:09)
[2018-01-23] MEDS: ASPIRIN 81 MG CHEW TAB PO SCH (13:09)
[2018-01-23] MEDS: NIFEDIPINE CR 30 MG TAB PO SCH ×2 (13:10→21:00)
[2018-01-23] MEDS: TRAMADOL HCL 50 MG TAB PO SCH ×2 (13:10→17:10)
--- NOTE | 2018-01-23 13:53 | Operative Report ---
DATE OF PROCEDURE: January 23, 2018 TITLE OF PROCEDURES 1. Abdominal angiogram. 2. Contralateral right femoral angiogram with multiple digital subtraction angiography with followthrough to the foot level. 3. Ipsilateral left leg angiogram. INDICATIONS: Severe cellulitis of the right lower extremity with evidence of abnormal Doppler study and delayed healing of the severe cellulitis with presence of small fissures and severe changes and venous stasis ulcers. TECHNICAL DETAILS: After the usual sterile preparation and draping procedure, intravenous Versed and fentanyl given for sedation and local Xylocaine for anesthesia, a 4-Japanese sheath was established in place. Tennis racquet was used to do the abdominal angiogram. Then, with the help of the [employer] wire, we managed to cross from the left lower extremity to the right lower extremity in contralateral fashion. Right iliac angiogram was done. Subsequently, the catheter was pushed and advanced to the superficial femoral artery. Superficial femoral angiogram using digital subtraction technique was done. Subsequently popliteal and tibioperoneal were done and subsequently distal tibials as well as foot angiograms were done. Then the catheter was withdrawn and placed in the left common femoral artery. Angiogram of the left lower extremity was done using cine technique. At the end of the procedure, the sheath was removed. Hemostasis was achieved manually. No immediate complication and no blood loss. RESULTS 1. Abdominal angiogram: Minimal plaquing is noted. 2. Right lower extremity: There is 20% proximal ostial superficial femoral artery disease. The superficial femoral artery with minimal plaquing. The popliteal artery with minimal plaquing. Of note the patient had variation of normal, which is the origin of the right posterior tibial artery from the knee level. This artery is larger than the anterior tibial artery and is giving blood supply all the way to the foot. The tibioperoneal trunk and the distal popliteal is diseased at 80% to 90% calcified. It is giving small, deep peroneal with 70%. In the anterior tibial artery, the flow is slow in comparison to the posterior tibial artery, but still there is blood flow. There is calcified lesion at 80% to 90%. 3. Left lower extremity: Minimal disease and plaquing of the left iliac, superficial femoral artificially is noted. The left posterior tibial artery is smaller than the anterior tibial artery and there is disease affecting all its length. IMPRESSION AND PLAN 1. Severe right lower extremity below knee level. Luckily, there is good runoff via high origin of right posterior tibial artery. 2. Severe disease of the left posterior tibial artery. RECOMMENDATIONS: Aggressive medical therapy. If the patient continues not healing or if there is ulcer, then atherectomy of that lesion of the right distal popliteal tibioperoneal artery to be done. Other than that, medical therapy is recommended. COMPLICATIONS: None. BLOOD LOSS: None. Job#: [id number]
[2018-01-23] MEDS: MUPIROCIN 2% OINT 22 GM TUBE TOP SCH (14:57)
[2018-01-23] MEDS ORDERED: WARFARIN SOD 2.5 MG TAB PO SCH (17:00)
[2018-01-23] MEDS: SIMVASTATIN 40 MG TAB PO SCH (21:00)
[2018-01-24] VITALS: BP 130/73
[2018-01-24 04:00] VITALS: BP 145/73
[2018-01-24 06:51] LABS: BASOPHILS % 0.4 % (0.0-1.0); EOSINOPHILS # (AUTO) 0.2 (0.0-0.4); HEMATOCRIT 43.1 % (38.2-49.6); HEMOGLOBIN 13.7 g/dL (14.0-18.0); LYMPHOCYTES # (AUTO) 1.6 (1.0-3.2); LYMPHOCYTES % 21.6 % (18.0-39.1); MEAN CORPUSCULAR HEMOGLOBIN 25.8 pg (28-32); MEAN CORPUSCULAR HGB CONC 31.8 g/dL (31-35); MEAN CORPUSCULAR VOLUME 81.3 fL (81-99); MONOCYTES # (AUTO) 0.5 (0.2-0.8); MONOCYTES % 6.5 % (4.4-11.3); NEUTROPHILS % 68.8 % (38.7-80.0); PLATELET COUNT 279 x10e3/uL (140-360); RED CELL DISTRIBUTION WIDTH 15.9 % (11.7-14.4)
[2018-01-24 07:10] LABS: ANION GAP 13.2 mmol/L (8-16); BLOOD UREA NITROGEN 14 mg/dL (7-26); BUN/CREATININE RATIO 13 (6-25); CALCIUM 9.9 mg/dL (8.4-10.2); CARBON DIOXIDE 27 mmol/L (22-29); CHLORIDE 104 mmol/L (98-107); CREATININE, SERUM 1.07 mg/dL (0.72-1.25); EST GLOMERULAR FILTRATION RATE > 60 ML/MIN (60-); GLUCOSE 123 mg/dL (74-118); POTASSIUM 3.2 mmol/L (3.5-5.1); SODIUM 141 mmol/L (136-145)
[2018-01-24 07:53] VITALS: BP 178/87
[2018-01-24] MEDS: ATENOLOL 50 MG TAB PO SCH (08:15)
[2018-01-24] MEDS: ASPIRIN 81 MG CHEW TAB PO SCH (08:15)
[2018-01-24] MEDS: NIFEDIPINE CR 30 MG TAB PO SCH (08:15)
[2018-01-24] MEDS: MUPIROCIN 2% OINT 22 GM TUBE TOP SCH (08:15)
[2018-01-24] MEDS: OXYBUTYNIN CHLORIDE XL 5 MG TAB PO SCH (08:15)
[2018-01-24] MEDS: TRAMADOL HCL 50 MG TAB PO SCH (08:15)
[2018-01-24 08:53] VITALS: BP 178/87
[2018-01-24] MEDS ORDERED: FUROSEMIDE INJ 10 MG/ML 4 ML VIAL IV ONE (10:15)
[2018-01-24] MEDS ORDERED: VANCOMYCIN 1GM/NS 250 ML 250 ML IV ONE (10:15)
--- NOTE | 2018-01-24 10:40 | Discharge Summary ---
PRIMARY CARE DOCTOR: [facility]. FINAL DIAGNOSIS: Right leg cellulitis, failed outpatient therapy. SECONDARY DIAGNOSES 1. Peripheral vascular disease. 2. Morbid obesity. 3. Coronary artery disease with previous stent placement. 4. Chronic atrial fibrillation on Coumadin. 5. Uncontrolled hypertension, better. 6. Diabetes, stable. ADMINISTRATIVE SERVICES OFFICER: Dr. Christie, cardiovascular. PROCEDURES/STUDIES PERFORMED: Peripheral angiogram. HISTORY: Per [facility] and [facility]. HOSPITAL COURSE: The patient was taking clindamycin for about 2 days, maybe 3 days, and his cellulitis was not getting better. Therefore, the patient was admitted. The patient responded to IV vancomycin nicely. Arterial Doppler was done, which showed peripheral vascular disease. Subsequently, after reversing his Coumadin, peripheral angiogram was done. Given the fact that the patient is already on Coumadin and his peripheral vascular disease was borderline needing intervention, a decision was made for aggressive medical therapy only. No stent was placed since Plavix would be indicated, and he would be on 3 blood thinners. However, if the patient continues to have nonhealing wounds, then intervention should be considered. The patient was restarted on his Coumadin. The patient will go home on 5 more days of Bactrim to finish the course. The patient will continue to elevate his leg if he is not on his feet. I have notified his primary care doctor of this hospitalization. The patient was seen and examined today. It took 32 minutes total to discharge this patient. CONDITION ON DISCHARGE: Improved. DISCHARGE MEDICATIONS: Please see medication reconciliation form. ANI OCASIO M.D. Job#: [id number] cc:MELLO HIGHTOWER MD
[2018-01-24] MEDS ORDERED: BACTRIM DS TAB1 EACH PO (11:35)
[2018-01-24 11:43] VITALS: BP 133/60
[2018-01-25] MEDS ORDERED: TRIAMTERENE/HCTZ 37.5-25 MG TAB PO SCH (09:00)
[2018-01-25] MEDS ORDERED: QUINAPRIL HCL 20 MG TAB PO SCH (09:00)
== END 2018-01-24 14:10 | disposition home or self-care (01) | DRG 603 ==
LOC: ER 15:00 → ERHOLD 18:45 → MED/SURG2 20:54
PROVIDERS: ADMIT Internal Medicine; ATTEND Internal Medicine
PROC: B40D1ZZ Plain Radiography of Aorta and Bilateral Lower Extremity Arteries using Low Osmolar Contrast (ICD-10-PCS; principal; 2018-01-23)
DX: L03.115 Cellulitis of right lower limb (principal); Z68.41 Body mass index [BMI] 40.0-44.9, adult; L97.419 Non-pressure chronic ulcer of right heel and midfoot with unspecified severity; E66.01 Morbid (severe) obesity due to excess calories; I25.10 Atherosclerotic heart disease of native coronary artery without angina pectoris; N28.9 Disorder of kidney and ureter, unspecified; I48.2 Chronic atrial fibrillation; Z79.01 Long term (current) use of anticoagulants; I10 Essential (primary) hypertension; E11.51 Type 2 diabetes mellitus with diabetic peripheral angiopathy without gangrene; G89.29 Other chronic pain; E87.6 Hypokalemia; Z87.891 Personal history of nicotine dependence; Z88.5 Allergy status to narcotic agent; Z88.0 Allergy status to penicillin; Z88.8 Allergy status to other drugs, medicaments and biological substances; I87.8 Other specified disorders of veins; Z83.3 Family history of diabetes mellitus; Z82.49 Family history of ischemic heart disease and other diseases of the circulatory system; E78.5 Hyperlipidemia, unspecified; G47.30 Sleep apnea, unspecified; R23.4 Changes in skin texture
CPT/HCPCS: 36140; 36415; 71046; 75630; 77002; 80048; 80053; 80061; 80202; 81001; 82550; 82553; 82948; 83605; 83735; 84443; 84484; 85025; 85610; 85730; 87040; 87086; 93005; 93306; 93926; 93971; 96365; 99284; C1766; J0360; J0692; J1644; J1940; J2001; J2250; J2270; J3370; J3430; J7030; Q9967